=== PATIENT | female | born 1950 | race Caucasian/White ===

== ENCOUNTER 2025-10-25 11:48 | Emergency (ER) | payer MEDICARE, MEDICAID ==
[~2025-10-25] VITALS: Ht 165.1 cm; Wt 63.6 kg
[2025-10-25 11:54] VITALS: TEMP 98.6
[2025-10-25] MEDS ORDERED: LOSA-381 PO (11:56)
[2025-10-25] MEDS ORDERED: METF-1211 PO (11:56)
[2025-10-25] MEDS ORDERED: CHOLESTEROL PO (11:56)
[2025-10-25 12:13] LABS: APPEARANCE,URINE HAZY (CLEAR); GLUCOSE, URINE (UA) NEGATIVE (NEGATIVE); LEUKOCYTE ESTERASE ,URINE LARGE (NEGATIVE); NITRATE,URINE POSITIVE (NEGATIVE); OCCULT BLOOD,URINE LARGE (NEGATIVE); SPECIFIC GRAVITIY, URINE 1.011 (1.003-1.030)
[2025-10-25 12:45] VITALS: BP 138/98; PULSE 97; RESP 18; O2SAT 96
[2025-10-25 12:52] LABS: PLATELET COUNT (AUTO) 316 K/uL (150-450); RED BLOOD CELL COUNT(AUTO) 4.74 MIL/uL (4.00-5.20); RED CELL DISTRIBUTION WIDTH 13.6 % (11.5-14.5); WHITE BLOOD COUNT (AUTO) 10.9 K/uL (4.5-11.0)
[2025-10-25 13:00] LABS: CALCIUM, TOTAL 9.2 mg/dL (8.8-10.5); CREATININE 0.68 mg/dL (0.60-1.30); GLOMERULAR FILTR. RATE CALC > 60 mL/min (>60); GLUCOSE,RANDOM 107 mg/dL (70-110); SODIUM SERUM 144 mmol/L (136-145); UREA NITROGEN, BLOOD 13 mg/dL (7-18)
[2025-10-25 13:06] LABS: ASPARTATE AMINOTRANSFERASE 18.0 U/L (15-37); TOTAL PROTEIN, SERUM 7.6 g/dL (6.4-8.2)
[2025-10-25] MEDS ORDERED: CEPH-558 PO (13:12)
[2025-10-25] MEDS: CEPHALEXIN MONOHYDRATE 500 MG CAPSULE PO ONE (13:21)
== END 2025-10-25 13:28 | disposition home or self-care (01) ==
LOC: EMS 11:48
DX: N39.0 Urinary tract infection, site not specified (principal); E11.9 Type 2 diabetes mellitus without complications; E78.00 Pure hypercholesterolemia, unspecified; I10 Essential (primary) hypertension; Z79.899 Other long term (current) drug therapy
CPT/HCPCS: 80048; 80076; 81001; 82962; 83690; 85025; 87086; 99283